=== PATIENT | male | born 1935 | race Caucasian/White ===

== ENCOUNTER 2017-01-12 07:54 | Outpatient (CLI) | payer MEDICARE ==
--- NOTE | 2017-01-12 09:26 | CT ---
CT BRAIN NONCONTRAST: DATE: 01-12-17 TIME: 8:13 a.m. HISTORY: 81-year-old male with Alzheimer's disease, now experiencing dizziness. COMPARISON: 05-11-12, 01-17-05 FINDINGS: There is moderate dilation of the lateral ventricles and third ventricle. This has worsened since , and dramatically worsened compared to 2004. This is likely to be on an ex vacuo basis due to diffuse brain parenchymal volume loss. There is a smaller possibility of normal pressure hydrocephal us, but that would be more of a clinical diagnosis (gait apraxia, urinary incontinence, and dementia ). There are chronic ischemic white matter changes. Sulci are diffusely enlarged, reflecting diffuse brain parenchymal volume loss. No mass effect, midline shift, large cortical infarction, acute intr aaxial or extraaxial hemorrhage, or any extraaxial fluid collection. Calvarium is intact. Bilateral tympanomastoid cavities and the upper portions of paranasal sinuses are grossly clear. There is a la rge amount of cerumen in the bilateral external auditory canals. There is a tiny old lacunar infarct ion in the left cerebellar hemisphere. IMPRESSION: 1. Ventriculomegaly, significantly progressed compared to prior CTs. 2. Diffuse involutional changes and chronic ischemic white matter changes. 3. 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 4. No acute intracranial findings. FINESSE Price POS: ANA
--- NOTE | 2017-01-12 18:15 | PET ---
NUCLEAR MEDICINE PET CT BRAIN: Date: 01/12/17 HISTORY: 81-year-old male with dementia. TECHNIQUE: 9.2 mCi of F18-FDG injected IV. PET scan of brain performed, along with noncontrast attenuation correction CT. FINDINGS: There is decreased FDG uptake (hypometabolism) of the bilateral frontal, temporal, and parietal marisa ices. The occipital cortices, and sensory and motor cortices, are relatively spared. This the classi c pattern for advanced Alzheimer's. This is not the pattern for Lewy body disease or frontotemporal dementia. IMPRESSION: Advanced Alzheimer's disease (classic PET pattern). POS: ANA
== END 2017-01-12 07:55 | disposition home or self-care (01) ==
LOC: CT 07:54
PROVIDERS: ATTEND Psychiatry & Neurology Neurology
DX: G30.1 Alzheimer's disease with late onset (principal); G93.89 Other specified disorders of brain
CPT/HCPCS: 70450; 78608; A9552

== ENCOUNTER 2017-08-21 09:10 | Emergency (ER) | payer MEDICARE ==
[2017-08-21] MEDS ORDERED: Metoclopramide HCl 10 MG/2 ML VIAL ONE (09:25)
[2017-08-21 09:39] LABS: #Basophils 0.1 thou/uL (0.0-0.2); #Lymphocytes 1.2 thou/uL (1.20-3.40); #Monocytes 0.4 thou/uL (0.11-0.59); #Neutrophils 6.1 thou/uL (1.40-6.50); %Basophils 0.6 % (0.0-1.0); %Eosinophils 0.5 % (0.0-10.0); %Lymphocytes 15.2 % (21.0-51.0); %Neutrophils 78.7 % (42.0-75.0); Mean Corpuscular HGB CONC 36.2 g/dL (32.0-36.0); Mean Corpuscular Hemoglobin 34.7 pg (27.0-31.0); Mean Corpuscular Volume 95.8 fl (80.0-94.0); Mean Platelet Volume 8.1 fL (7.4-10.4); Platelet Count 152 thou/uL (130-400); RBC Distribution Width 12.8 % (11.5-14.5); Red Blood Cell (RBC) Count 4.05 mill/uL (4.70-6.10); White Blood Cell (WBC) Count 7.8 thou/uL (4.8-10.8)
[2017-08-21 09:59] LABS: CKMB 0.8 ng/mL (0-6.6); Troponin I Less than 0.010 ng/mL (< 0.028)
[2017-08-21 10:07] LABS: ALT (SGPT) 19 U/L (8-55); AST (SGOT) 19 U/L (5-34); Albumin 3.8 g/dL (3.4-4.8); Alkaline Phosphatase 106 U/L (40-150); Anion Gap 13 mmol/L (10-20); BUN (Urea Nitrogen) 12 mg/dL (8.4-25.7); Bilirubin, Total 1.3 mg/dL (0.2-1.2); Calc. Creatinine Clearance 0 mL/min (70-130); Calcium 8.7 mg/dL (7.8-10.44); Carbon Dioxide 20 mmol/L (23-31); Chloride 114 mmol/L (98-107); Estimated GFR-MDRD 85; Glucose 154 mg/dL (83-110); Potassium 3.5 mmol/L (3.5-5.1); Protein, Total 6.8 g/dL (5.8-8.1); Sodium 143 mmol/L (136-145)
--- NOTE | 2017-08-21 10:56 | RAD ---
PORTABLE UPRIGHT FRONTAL CHEST RADIOGRAPH: DATE: 08/21/17. COMPARISON: 01/18/05. HISTORY: Palpitations, weakness, nausea, and vomiting. FINDINGS: There is no pneumothorax. Midline sternotomy wires, mediastinal clips, and transvenous pacing device noted. No focal consolidation or alveolar edema. IMPRESSION: No acute findings. Stable chronic findings as above. POS: ANA
--- NOTE | 2017-08-21 11:00 | CT ---
HEAD CT WITHOUT CONTRAST: DATE: 08/21/17. COMPARISON: 01/12/17. HISTORY: Altered mental status, dementia. TECHNIQUE: Serial axial CT imaging at 5 mm intervals from the vertex through the skull base without contrast. FINDINGS: The imaged paranasal sinuses and mastoid air cells are well aerated. There is soft tissue density in the external auditory canal on the bilaterally which may represent impacted cerumen. Direct visuali zation is advised. There is no intracranial hemorrhage, midline shift, or mass effect. There is moderate diffuse cerebr al volume loss with associated prominence of the CSF-containing spaces. Periventricular hypodensitie s suggest small-vessel disease. IMPRESSION: Small-vessel disease and cerebral volume loss with no intracranial hemorrhage. Soft tissue density w ithin the external auditory canal bilaterally. POS: ANA
[2017-08-21 11:28] LABS: Bilirubin Negative (Negative); Blood, Urine Small (Negative); Glucose, Urine (Dipstick) Negative (Negative); Leukocyte Negative (Negative); Nitrite Negative (Negative); Protein, Urine (Dipstick) Negative (Neg-Trace); Specific Gravity, Urine 1.025 (1.005-1.030)
[2017-08-21 11:29] LABS: Clarity CLEAR (Clear)
[2017-08-21 11:36] LABS: WBC/HPF None Seen HPF (0-3)
[2017-08-21 11:37] LABS: Bacteria/HPF 1+ HPF (None Seen); Hyaline Casts/LPF NONE SEEN LPF (0-3 Hyaline); Squamous Epithelial 0-3 HPF (0-3)
== END 2017-08-21 12:00 | disposition home or self-care (01) ==
LOC: ERS 09:10
DX: R53.1 Weakness (principal); R11.2 Nausea with vomiting, unspecified; I20.9 Angina pectoris, unspecified; F17.200 Nicotine dependence, unspecified, uncomplicated
CPT/HCPCS: 36415; 51701; 70450; 71045; 80053; 81003; 81015; 82553; 83880; 84484; 85025; 93005; 96365; J2765

== ENCOUNTER 2018-08-15 20:15 | Emergency (ER) | payer MEDICARE ==
[2018-08-15 20:50] LABS: #Eosinphils 0.1 thou/uL (0.0-0.7); #Lymphocytes 1.3 thou/uL (1.20-3.40); #Monocytes 0.7 thou/uL (0.11-0.59); #Neutrophils 5.5 thou/uL (1.40-6.50); %Basophils 0.1 % (0.0-1.0); %Eosinophils 1.9 % (0.0-10.0); %Lymphocytes 16.8 % (21.0-51.0); %Neutrophils 72.2 % (42.0-75.0); Hemoglobin 9.7 g/dL (14.0-18.0); Mean Corpuscular HGB CONC 35.1 g/dL (32.0-36.0); Mean Corpuscular Hemoglobin 34.4 pg (27.0-31.0); Mean Platelet Volume 7.3 fL (7.4-10.4); Platelet Count 204 thou/uL (130-400); RBC Distribution Width 13.4 % (11.5-14.5); Red Blood Cell (RBC) Count 2.81 mill/uL (4.70-6.10); White Blood Cell (WBC) Count 7.6 thou/uL (4.8-10.8)
[2018-08-15 21:15] LABS: ALT (SGPT) 11 U/L (8-55); AST (SGOT) 13 U/L (5-34); Albumin 3.4 g/dL (3.4-4.8); Alkaline Phosphatase 111 U/L (40-150); Anion Gap 9 mmol/L (10-20); BUN (Urea Nitrogen) 19 mg/dL (8.4-25.7); Bilirubin, Total 1.4 mg/dL (0.2-1.2); Calc. Creatinine Clearance 0 mL/min (70-130); Calcium 8.7 mg/dL (7.8-10.44); Carbon Dioxide 25 mmol/L (23-31); Chloride 110 mmol/L (98-107); Estimated GFR-MDRD 82; Globulin 2.7 g/dL (2.4-3.5); Glucose 87 mg/dL (83-110); Potassium 3.6 mmol/L (3.5-5.1); Protein, Total 6.1 g/dL (5.8-8.1); Sodium 140 mmol/L (136-145)
[2018-08-15 21:58] LABS: INR-International Normal Ratio 1.1; PTT 28.9 SEC (22.9-36.1)
[2018-08-15] MEDS ORDERED: Enoxaparin Sodium 80 MG/0.8 ML SYRINGE ONE (23:23)
--- NOTE | 2018-08-16 00:41 | ULT ---
Right lower extremity venous Doppler ultrasound evaluation history: Right lower extremity pain and swelling Multiple longitudinal and transverse images of the right lower extremity venous systems obtained usin g multi hertz linear array transducer. Real-time, color flow and spectral waveform Doppler analysis demonstrates no evidence of acute or old clot seen in the right common femoral vein, superficial vein and right popliteal veins. Good flow seen in the right greater saphenous vein. Noncompressible clot is seen in the right posterior tibial vein IMPRESSION: Positive for venous thrombus in the right mid posterior tibial vein.
== END 2018-08-15 23:45 | disposition home or self-care (01) ==
LOC: ERS 20:15
DX: I82.4Z1 Acute embolism and thrombosis of unspecified deep veins of right distal lower extremity (principal); I20.9 Angina pectoris, unspecified; F17.200 Nicotine dependence, unspecified, uncomplicated
CPT/HCPCS: 36415; 80053; 85025; 85379; 85610; 85730; 93005; 96372; J1650

== ENCOUNTER 2019-10-10 23:48 | Emergency (ER) | payer MEDICARE ==
[2019-10-11 00:24] LABS: #Eosinphils 0.1 thou/uL (0.0-0.7); #Lymphocytes 0.9 thou/uL (1.20-3.40); #Monocytes 0.5 thou/uL (0.11-0.59); #Neutrophils 4.9 thou/uL (1.40-6.50); %Eosinophils 1.4 % (0.0-10.0); %Monocytes 7.8 % (0.0-10.0); %Neutrophils 76.8 % (42.0-75.0); Hemoglobin 8.3 g/dL (14.0-18.0); Mean Corpuscular HGB CONC 35.1 g/dL (32.0-36.0); Mean Corpuscular Hemoglobin 34.8 pg (27.0-31.0); Mean Corpuscular Volume 99.2 fL (78.0-98.0); Mean Platelet Volume 7.3 fL (7.4-10.4); Platelet Count 186 thou/uL (130-400); Red Blood Cell (RBC) Count 2.38 mill/uL (4.70-6.10); White Blood Cell (WBC) Count 6.4 thou/uL (4.8-10.8)
[2019-10-11 01:43] LABS: Bilirubin Negative (Negative); Blood, Urine Negative (Negative); Clarity Clear (Clear); Glucose, Urine (Dipstick) Normal (Negative); Ketone, Urine Negative (Negative); Leukocyte Negative Leu/uL (Negative); Nitrite Negative (Negative); Protein, Urine (Dipstick) Negative (Neg-Trace); Specific Gravity, Urine 1.018 (1.002-1.036); Urobilinogen Normal mg/dL (Less than 2)
[2019-10-11 02:49] LABS: ALT (SGPT) 8 U/L (8-55); AST (SGOT) 12 U/L (5-34); Albumin 3.4 g/dL (3.4-4.8); Alkaline Phosphatase 87 U/L (40-110); Anion Gap 13 mmol/L (10-20); BUN (Urea Nitrogen) 19 mg/dL (8.4-25.7); Bilirubin, Total 1.4 mg/dL (0.2-1.2); Calc. Creatinine Clearance 0 mL/min (70-130); Calcium 8.2 mg/dL (7.8-10.44); Carbon Dioxide 22 mmol/L (23-31); Chloride 106 mmol/L (98-107); Estimated GFR-MDRD 83; Globulin 2.8 g/dL (2.4-3.5); Glucose 102 mg/dL (83-110); Potassium 3.9 mmol/L (3.5-5.1); Protein, Total 6.2 g/dL (5.8-8.1); Sodium 137 mmol/L (136-145)
--- NOTE | 2019-10-11 07:43 | RAD ---
EXAM: Single view of the chest HISTORY: Chest pain COMPARISON: 08/21/2017 FINDINGS: Single view of the chest shows a normal sized cardiomediastinal silhouette. The patient is status post sternotomy. The pacemaker is unchanged in position. There is no evidence of consolidation, mass, or pleural effusion. The bones are unremarkable. IMPRESSION: No evidence of acute cardiopulmonary disease
== END 2019-10-11 03:01 | disposition home or self-care (01) ==
LOC: ERS 23:48
DX: D64.9 Anemia, unspecified (principal); F17.220 Nicotine dependence, chewing tobacco, uncomplicated; I20.9 Angina pectoris, unspecified; Z79.899 Other long term (current) drug therapy
CPT/HCPCS: 36415; 71045; 80053; 81003; 82550; 84484; 85025; 93005